=== PATIENT | female | born 2000 | race African-American/Black ===

== ENCOUNTER 2020-04-08 19:58 | Emergency (ER) | payer MEDICAID, OTHER ==
[~2020-04-08] VITALS: Ht 172.7 cm; Wt 63.5 kg
[2020-04-08 20:07] VITALS: BP 128/82
--- NOTE | 2020-04-08 20:07 | NUR ---
ED Nurse Note: pt ambulated into ed from home [place] skin rash on top of right hand, between 2nd and 3rd digits on left hand, and on upper right eyelid. Pt states pain 6/10, with itchiness, some clear drainage. Affected areas are warm to touch, redness noted, with small blustered blisters. Pt aao x 4, ambulatory with steady gait. Awaiting ERMD at bedside. Addendum: 04/08/20 at 2014 by AMARJIT ED Nurse Note: pt ambulated into ed from home CO skin rash x 1 week on top of right hand, between 2nd and 3rd digits on left hand, and on upper right eyelid (x 4 days). Pt states pain 6/10, with itchiness, some clear drainage. Affected areas are warm to touch, redness noted, with small blustered blisters. Pt aao x 4, ambulatory with steady gait. Awaiting ERMD at bedside.
--- NOTE | 2020-04-08 20:23 | NUR ---
ED Nurse Note: ERMD at bedside.
--- NOTE | 2020-04-08 20:38 | Emergency Room Report ---
History of Present Illness General Chief Complaint: Skin Rash/Abscess Source: Patient Present Illness HPI The patient states that for the past week she has noted an itchy rash developing on both of her hands. It [place] and itches. She states she has had similar symptoms previously but has used a Sanjana lotion in the past which has resolved the symptoms. 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 She presents during the COVID-19 pandemic. She states it is difficult to keep her hands dry. She denies fever or chills. She denies cough or congestion. She does have a small area on her right upper eyelid but states that resolves on its own. She has no other symptoms or complaints. Allergies: Coded Allergies: NO KNOWN ALLERGIES (Unverified Allergy, Unknown, 06/10/15) COVID-19 Screening Contact w/high risk pt: No Experienced COVID-19 symptoms?: No COVID-19 Testing performed CONTENT SPECIALIST: No Patient History Past Medical History: none Social History: Denies: smoking, alcohol use, drug use Last Menstrual Period: 04/07 Now: No : 0 Para: 0 Reviewed Nursing Documentation: PMH: Agreed; PSxH: Agreed Nursing Documentation-PMH Past Medical History: No Stated History Review of Systems All Other Systems: negative except mentioned in HPI Physical Exam Vital Signs Date Time Temp Pulse Resp B/P (MAP) Pulse Ox O2 Delivery O2 Flow Rate FiO2 04/08/20 20:03 98.8 75 20 128/82 (97) 98 Room Air Sp02 EP Interpretation: reviewed, normal General Appearance: no apparent distress, alert, GCS 15, non-toxic Head: normocephalic, atraumatic Eyes: bilateral eye normal inspection ENT: hearing grossly normal, no angioedema, normal voice Neck: normal inspection Respiratory: no respiratory distress, no retraction, no accessory muscle use, speaking full sentences Rectal: deferred Musculoskeletal: normal inspection, gait/station normal, non-tender Neurologic: alert, oriented x3, responsive, speech normal, grossly normal Psychiatric: judgement/insight normal, memory normal, mood/affect normal, no suicidal/homicidal ideation Skin: other - R. Leonardo wrist with area of erythematous skin and tiny vesicular lesions approximately [id number]. Idential lesions/skin findings on the L. 3/4th interdigital web space. Medical Decision Making Diagnostic Impression: Primary Impression: Dyshidrotic eczema ER Course This patient has findings on exam consistent with dyshidrotic eczema. The patient states that the pruritus and burning is worsening and that lotions are not working. Therefore, I will start the patient on topical triamcinolone. I also educated the patient on the importance of keeping the skin dry and using Aquaphor emollients. This will be difficult for her given her job that she was told that wet skin and sweaty hands are likely exacerbating the dyshidrotic eczema. There is no emergency medical condition. The patient is instructed to follow-up with her primary care physician or hander in. The patient is given close return precautions and follow-up instructions. Last Vital Signs Date Time Temp Pulse Resp B/P (MAP) Pulse Ox O2 Delivery O2 Flow Rate FiO2 04/08/20 20:07 98.8 75 20 128/82 98 Room Air Status: improved Disposition: HOME, SELF-CARE Condition: Improved Referrals: [facility],REFERRING (PCP) Maria Guadalupe Mcnamara DO Apr 08, 2020 20:38
[2020-04-08] MEDS ORDERED: TRIAMCINOLONE A15 G3 TP (20:44)
[2020-04-08 20:47] VITALS: BP 121/79
--- NOTE | 2020-04-08 20:47 | NUR ---
ER DISCHARGE NOTE: Patient is cleared to be discharged home per ERMD, pt is aox4, 99% on room air, with stable vital signs. pt was given dc and prescription instructions, pt was able to verbalize understanding, pt id band removed. pt is able to ambulate with steady gait. pt took all belongings.
== END 2020-04-08 20:47 | disposition home or self-care (01) ==
LOC: EMR 20:22
DX: L30.1 Dyshidrosis [pompholyx] (principal)
CPT/HCPCS: 99282